=== PATIENT | male | born 1990 | race Caucasian/White ===

== ENCOUNTER 2017-04-09 22:07 | Emergency (ER) | payer OTHER ==
[~2017-04-09] VITALS: Ht 170.2 cm; Wt 68.0 kg
[~2017-04-09 22:07] MED LIST: ATIVAN2 MG PO; CELLCEPT250 MG PO; CETIRIZINE HCL5 MG PO; COZAAR25 MG PO; FLONASE ALLERG9.9 ML NS; FOSAMAX5 MG PO; FOSAMAX70 MG PO; LORAZEPAM1 MG PO; MAGNESIUM CITR296 ML PO; PREDNISONE5 MG PO; PROGRAF1 MG PO; SENNA8.6 MG PO; VITAMIN D350000 UNIT PO; ZANTAC150 MG PO
[2017-04-09] MEDS ORDERED: VITAMIN D50000 UNI1 PO (22:27)
[2017-04-09] MEDS ORDERED: ATIVAN1 MG PO (22:36)
[2017-04-09] MEDS ORDERED: BENADRYL25 MG PO (22:37)
--- NOTE | 2017-04-10 17:24 | EKG ---
[facility] [address] [place] [address] Signed Sinus tachycardia Otherwise normal ECG No previous ECGs available Confirmed by RIGOBERTO REDDY MD ([id number]) on 04/10/2017 5:24:08 PM Electronically Signed By: RIGOBERTO REDDY MD 04/10/17 1724 PATIENT NAME: ZAYHUGO VAUGHAN Electrocardiogram DATE OF : 88 PHYSICIAN: RIGOBERTO REDDY MD REPORT #: [id number] REPORT IS CONFIDENTIAL AND NOT TO BE RELEASED WITHOUT AUTHORIZATION
== END 2017-04-10 01:49 | disposition short-term general hospital (02) ==
LOC: ED 22:07
PROC: 0T9B70Z Drainage of Bladder with Drainage Device, Via Natural or Artificial Opening (ICD-10-PCS; principal; 2017-04-09)
DX: A41.9 Sepsis, unspecified organism (principal); N39.0 Urinary tract infection, site not specified; Z94.0 Kidney transplant status; Z92.25 Personal history of immunosuppression therapy; Z91.013 Allergy to seafood; Z88.8 Allergy status to other drugs, medicaments and biological substances; Z79.899 Other long term (current) drug therapy
CPT/HCPCS: 51702; 71010; 80053; 81001; 83605; 85025; 85610; 85730; 87040; 87077; 87088; 87186; 93005; 93010; 96365; 96368; 99285; J0696; J2704

== ENCOUNTER 2017-05-09 05:53 | Day surgery (SDC) | payer OTHER ==
[~2017-05-09] VITALS: Ht 170.2 cm; Wt 68.0 kg
[~2017-05-09 05:53] MED LIST changes: +ATIVAN1 MG PO; +BENADRYL25 MG PO; +VITAMIN D50000 UNI1 PO
== END 2017-05-09 11:35 | disposition home or self-care (01) ==
LOC: DS 05:53
PROVIDERS: Dentist
PROC: 0CDWXZ1 Extraction of Upper Tooth, Multiple, External Approach (ICD-10-PCS; 2017-05-09)
PROC: 0CDXXZ1 Extraction of Lower Tooth, Multiple, External Approach (ICD-10-PCS; principal; 2017-05-09 06:45)
DX: K08.9 Disorder of teeth and supporting structures, unspecified (principal); G80.9 Cerebral palsy, unspecified; N19 Unspecified kidney failure; K21.9 Gastro-esophageal reflux disease without esophagitis; J30.2 Other seasonal allergic rhinitis; Z94.0 Kidney transplant status; Z91.013 Allergy to seafood; Z88.8 Allergy status to other drugs, medicaments and biological substances
CPT/HCPCS: 00170; J0330; J1100; J2250; J2405; J2704; J3010; J7120

== ENCOUNTER 2018-04-10 06:00 | Day surgery (SDC) | payer OTHER ==
[~2018-04-10] VITALS: Ht 170.2 cm; Wt 69.4 kg
[2018-04-10] MEDS ORDERED: MELATONIN1 MG (06:22)
--- NOTE | 2018-04-10 07:43 | NUR ---
LIPS ANS PALATE VERY RED AND SOMEWHAT EDEMATOS
--- NOTE | 2018-04-10 09:36 | NUR ---
04/10/18 0936 Iesha Keen 0850 PT ARRIVED TO PACU ON 8L VIA MASK, PT REACTIVE. PT IS MRDD AND NONVERBAL. RESP EVEN AND UNLABORED. 0855 PT SLOWLY WAKES AND PULLS OFF MONITORS, PT CONTINUES TO BECOME MORE AWAKE AND MORE EXTREMITIES. PT HAS GOOD MUSCLE TONE AND RESP CONTINUE TO BE EVEN AND UNLABORED. RN TALKING AND REASSURING PT. SKIN IS PINK. 0905 PT RE4ADY FOR TRANSFER TO SEE CAREGIVER AND MOTHER. PT HOLDING ON TO MAGAZINE AND IS STABLE. 0910 REPORT TO JOSTIN ROGEL.
--- NOTE | 2018-04-10 11:19 | NUR ---
1015 DRESSED WANTS TO GO HOME. DC INSTRUCTIONS EXPLAINED AND MOM HASNT ANY QUESTIONS.
== END 2018-04-10 10:05 | disposition home or self-care (01) ==
LOC: DS 06:00
PROVIDERS: Dentist
PROC: 0CRWXJ1 Replacement of Upper Tooth, Multiple, with Synthetic Substitute, External Approach (ICD-10-PCS; 2018-04-10)
PROC: 0CRXXJ0 Replacement of Lower Tooth, Single, with Synthetic Substitute, External Approach (ICD-10-PCS; principal; 2018-04-10 06:45)
DX: K02.9 Dental caries, unspecified (principal); F43.0 Acute stress reaction; F73 Profound intellectual disabilities; I10 Essential (primary) hypertension; N39.0 Urinary tract infection, site not specified; F84.0 Autistic disorder; Z88.8 Allergy status to other drugs, medicaments and biological substances; Z79.899 Other long term (current) drug therapy
CPT/HCPCS: 00170; J0330; J1100; J2405; J2704; J3010

== ENCOUNTER 2019-06-11 06:00 | Day surgery (SDC) | payer OTHER ==
[~2019-06-11] VITALS: Ht 170.2 cm; Wt 69.4 kg
[~2019-06-11 06:00] MED LIST changes: +MELATONIN1 MG
--- NOTE | 2019-06-11 07:59 | NUR ---
PARKING RAMP ATTENDANT GAVE VERSED IN SYRINGE SQUIRTED IN MOUTH HE IMMEDIATELY COUGHED AND SPIT ALL OVER BED AND GOWN. 0650 2ND DOSE MIXED WITH 10MLS 7UP AND HE DRANK MOST OF IT. DANIEL TEZ AWARE.
--- NOTE | 2019-06-11 08:02 | NUR ---
0700 NOT ABLE TO GET VS. PT LYING ON BED BUT STILL NOT RELAXED. MOM AND CAREGIVER AT BEDSIDE ATTENTIVE.
--- NOTE | 2019-06-11 11:01 | NUR ---
06/11/19 1101 Sheets,Iesha 1013 PT ARRIVED TO PACU ON 10L VIA MASK, PT RESP INCREASED RATE AND UPPER WHEEZE NOTED. PT HAS LARGE TONGUE AND GUMS SWOLLEN. RN MONITORING AIRWAY, PT TAKING DEEP BREATHES OFF AND ON. PT STARTING IN MOVE IN BED AND MOVING ARM DURING BP. 1014 CERTIFIED PROFESSIONAL CONTROLLER INCREASED BED TO HGIH FOWLERS AND RN ENCOURAGING PT TO DEEP BREATHE. PT USING ABD MUSCLES TO BREATH DEEP. 1017 O2 REMOVED PT RACHING AND PULLING AT MASK, PT NONVERBAL BUT NO GRMAICNG NOTED AT THIS TIME. PT YAWNING AND DEEP BREAHTING OFF AND ON. RN PLACES FIGUER STICKER O2 DUE TO PT PULLING OF O2 MONITOR. PILLOWING ON EACH SIDE OF PT, PT LEANS TO ONE SIDE AND MOVES ARMS FERQUENTLY. RN PROTECTS PT AMRS AND HEAD WHEN HE IS MOVING AROUND. 1030 RN MOVING IN BED LESS AND BP RUNNING. VSS. PT O2 SAT REMIANS ABOVE 90%. PT RESTING TO ONE SIDE AND BREATHING BECOMES MORE REGULAR. PT YAWNING AND DEEP BREATHING OFF AND ON. 1032 DS RN AT BEDSIDE AND REPORTS BREATHING IS BASELINE FOR PT. PT DROWSY BUT STABLE. PLAN TO RETURN TO DS WITH CAREGIVER AND MOTHER AT BEDSIDE. MINIMAL BLEEDING NOTED IN MOUTH. HOB DECREASED SLIGHTLY AND PILLOWS PLACED ON EACH SIDE OF PT.
--- NOTE | 2019-06-11 11:20 | NUR ---
LE-DC INSTRUCTIONS GIVEN. MOTHER AND CAREGIVER VERBALIZE UNDERSTANDING AND DENY FURTHER QUESTIONS. PT UP IN ROOM AND TRYING TO LEAVE. PT OKAY TO DC AT THIS TIME AND MEETS GENERAL CRITERIA PER DR. NEGRON. JOSTIN ROGEL TAKES PT TO VEHICLE
--- NOTE | 2019-06-11 14:21 | NUR ---
1120 HAS TAKEN WATER AND JELLO. WANTS TO GO HOME.
== END 2019-06-11 11:30 | disposition home or self-care (01) ==
LOC: DS 06:00 → OPS 06:00 → DS 06:45 → OPS 11:30
PROVIDERS: Dentist
PROC: 0WJ3XZZ Inspection of Oral Cavity and Throat, External Approach (ICD-10-PCS; principal; 2019-06-11 06:45)
DX: K03.6 Deposits [accretions] on teeth (principal); K21.9 Gastro-esophageal reflux disease without esophagitis; Z88.8 Allergy status to other drugs, medicaments and biological substances; Z91.013 Allergy to seafood; Z79.899 Other long term (current) drug therapy
CPT/HCPCS: 70320; J0330; J0461; J1100; J1885; J2250; J2405; J2704; J2765; J3010; J7121

== ENCOUNTER 2021-04-27 05:50 | Day surgery (SDC) | payer OTHER ==
[~2021-04-27] VITALS: Ht 160 cm; Wt 72.2 kg
[~2021-04-27 05:50] MED LIST changes: +ACETAMINOPHEN500 M1 PO
[2021-04-27] MEDS ORDERED: DOCUSATE SODIU100 MG PO (06:14)
[2021-04-27] MEDS ORDERED: LORATADINE10 MG PO (06:14)
[2021-04-27] MEDS ORDERED: PROBIOTIC1 EAC1 PO (06:15)
[2021-04-27] MEDS ORDERED: MIRALAX17 GM PO (06:15)
[2021-04-27] MEDS ORDERED: PERIDEX473 M1 MM (06:16)
--- NOTE | 2021-04-27 06:36 | NUR ---
MOM AND RISK CONTROL OFFICER WITH PT WHO IS NONVERBAL ANSWERED QUESTIONS.
--- NOTE | 2021-04-27 06:50 | NUR ---
VERSED IS CALMING PT WILL ATTEMPT COVID TEST. RAILS ARE UP AND FAMILY AT BEDSIDE
--- NOTE | 2021-04-27 07:38 | NUR ---
RESTS QUIETLY ON R SIDE WITH EYES CLOSED AND EVEN RESP AT 16
--- NOTE | 2021-04-27 10:20 | NUR ---
04/27/21 1020 Ely Alston 1011- PT ARRIVES TO PACU NOT FOLLOWING COMMANDS, MOVING EXTREMITIES OFTEN. RESP EVEN AND UNLABORED. OXYGEN SAT HIGH 90'S TO 100% ON 6L VIA MASK. 1015- DIFFICULT TO OBTAIN ACCURATE BP'S THE PT IS MOVING AROUND IN THE BED. OXYGEN TITRATED OFF. 1018- PT MOVED HIMSELF TO HIS RIGHT SIDE. PT DOES NOT FOLLOW COMMANDS. RESP EVEN AND UNLABORED. OXYGEN SAT MID TO HIGH 90'S ON RA.
== END 2021-04-27 11:45 | disposition home or self-care (01) ==
LOC: DS 05:50
PROVIDERS: ATTEND Dentist General Practice
PROC: 0CQWXZ1 Repair of Upper Tooth, Multiple, External Approach (ICD-10-PCS; 2021-04-27)
PROC: 0CQXXZ1 Repair of Lower Tooth, Multiple, External Approach (ICD-10-PCS; principal; 2021-04-27 08:30)
DX: K02.9 Dental caries, unspecified (principal); K06.9 Disorder of gingiva and edentulous alveolar ridge, unspecified; F84.0 Autistic disorder; G80.9 Cerebral palsy, unspecified; F06.4 Anxiety disorder due to known physiological condition; Z94.0 Kidney transplant status; Z91.013 Allergy to seafood; Z88.8 Allergy status to other drugs, medicaments and biological substances
CPT/HCPCS: J0330; J1100; J2001; J2250; J2405; J2704; J7121; U0003

== ENCOUNTER 2022-10-04 05:55 | Day surgery (SDC) | payer OTHER ==
[~2022-10-04] VITALS: Ht 167.6 cm; Wt 69.0 kg
[~2022-10-04 05:55] MED LIST changes: +CEFPODOXIME PR200 MG PO; +CLEOCIN T60 ML TOP; +DOCUSATE SODIU100 MG PO; +FLONASE ALLERG9.9 ML NAS; -FLONASE ALLERG9.9 ML NS; +KETOCONAZOLE120 ML TOP; +LORATADINE10 MG PO; +MAG6464 MG PO; -MAGNESIUM CITR296 ML PO; -MELATONIN1 MG; +MELATONIN1 MG PO; +MIRALAX17 GM PO; +MYCOPHENOLATE250 MG PO; +ONDANSETRON ODT4 MG PO; +PANOXYL156 GM TOP; +PERIDEX473 M1 MISC; +PROBIOTIC1 EAC1 PO; +SENNA-S 8.6-501 EACH PO; -SENNA8.6 MG PO; +TACROLIMUS1 MG PO
--- NOTE | 2022-10-04 08:31 | NUR ---
10/04/22 0831 Ely Alston 0817- PT ARRIVES TO PACU NONAROUSABLE TO STIMULI WITH AN OPA IN PLACE AND PT NEEDING A JAW THRUST. RESP EVEN AND TACHYPNEIC. OXYGEN SAT HIGH 90'S TO 100% ON 10L VIA MASK. RAIL GRINDER AWARE OF PT'S BP. GOING TO GET MEDICATION FOR IT. SEE ANESTHESIA BLUE SHEET. 0821- PT APNEIC. PREPARING TO BAG PT. JAW THRUST BEING PERFORMED. PT STARTS BREATHING AGAIN ON HIS OWN. PT NOT BAGGED AT THIS TIME. 0823- PT DRAWING UP HIS LEGS. PT IS NOT OPENING HIS EYES. OPA LEFT IN PLACE. PT REMAINS NEEDING A JAW THRUST INTERMITTENTLY. 0829- RAIL GRINDER REMAINS AT THE BEDSIDE TO TREAT PT'S HYPERTENSION. SEE ANESTHESIA BLUE SHEET.
--- NOTE | 2022-10-04 09:09 | NUR ---
0855-PATIENT BACK TO ROOM FROM PACU ON RA. RECEIVED REPORT FROM RAZA ROGEL. PATIENT IS DROWSY LAYING ON HIS RIGHT SIDE. NO DRAINAGE NOTED IN MOUTH. SOME BLOOD NOTED ON PATIENTS PILLOW. PATIENT MOM AND CAREGIVER ARE IN THE ROOM. RED JELLO AND SODA PROVIDED TO PATIENT PER MOMS REQUEST. CALL LIGHT WITHIN REACH.
--- NOTE | 2022-10-04 10:35 | NUR ---
0948-PATIENT SITTING UP IN BED. CAREGIVER AND MOM WOULD LIKE TO TAKE PATIENT HOME. VSS. PATIENT DOESN'T APPEAR TO BE IN PAIN. DRIED BLOOD NOTED AROUND MOUTH AND NOSE. PATIENT IS ALREADY DRESSED.
--- NOTE | 2022-10-04 10:42 | NUR ---
0955-PROVIDED DISCHARGE INSTRCTIONS TO CAREGIVER AND PATIENT. ALL QUESTIONS ANSWERED. PATIENT AMBULATES TO WHEELCHAIR. RIDE PROVIDED TO FRONT OF HOSPITAL. THEN MITZI ROGEL WALKED PATIENT TO [place].
== END 2022-10-04 09:55 | disposition home or self-care (01) ==
LOC: OPS 05:55 → DS 05:55 → OPS 07:00
PROVIDERS: ATTEND Dentist General Practice
DX: K02.9 Dental caries, unspecified (principal); K05.6 Periodontal disease, unspecified; K59.09 Other constipation; F84.0 Autistic disorder; F41.1 Generalized anxiety disorder
CPT/HCPCS: 70320; J0330; J1100; J1885; J2250; J2405; J2704; J2765; J3010; J7121

== ENCOUNTER 2023-11-21 05:49 | Day surgery (SDC) | payer OTHER ==
[~2023-11-21] VITALS: Ht 167.6 cm; Wt 72.7 kg
[~2023-11-21 05:49] MED LIST changes: +DEBROX SWIMMER'30 ML; +LACTATED RINGER'S 1,000 ML IV SCH
[2023-11-21] MEDS ORDERED: MIDAZOLAM HCL 10 MG/5 ML SYR PO ONE (06:00)
[2023-11-21] MEDS ORDERED: METOCLOPRAMIDE HCL 10 MG/2 ML SDV ONE (06:03)
[2023-11-21] MEDS ORDERED: fentaNYL citrate 100 MCG/2 ML VIAL ONE (06:03)
[2023-11-21] MEDS ORDERED: SUCCINYLCHOLINE IN 0.9% NACL 200 MG/10 ML SYRINGE ONE (06:03)
[2023-11-21] MEDS ORDERED: MIDAZOLAM HCL 2 MG/2 ML VIAL ONE (06:03)
[2023-11-21] MEDS ORDERED: propofoL 200 MG/20 ML VIAL ONE (06:03)
[2023-11-21] MEDS ORDERED: FAMOTIDINE 20 MG/ 2 ML VIAL ONE (06:03)
[2023-11-21] MEDS ORDERED: LACTATED RINGER'S 1,000 ML IV ONE (06:03)
[2023-11-21] MEDS ORDERED: DEXAMETHASONE SOD PHOS 4 MG/ML VIAL ONE (06:03)
[2023-11-21] MEDS ORDERED: ROCURONIUM BROMIDE 50 MG/5 ML SYR ONE (06:03)
[2023-11-21] MEDS ORDERED: KETOROLAC TROMETHAMINE 30 MG/ML VIAL ONE (06:03)
[2023-11-21] MEDS ORDERED: ondansetron HCL 4 MG/2 ML VIAL ONE (06:03)
[2023-11-21] MEDS ORDERED: SUGAMMADEX SODIUM 200 MG/2 ML ML ONE (06:03)
[2023-11-21] MEDS ORDERED: LIDOCAINE HCL 4% 5 ML AMP ONE (06:03)
[2023-11-21] MEDS ORDERED: OXYMETAZOLINE HCL 30 ML BTL ONE (06:10)
[2023-11-21 06:24] VITALS: BP 146/101
--- NOTE | 2023-11-21 06:37 | NUR ---
PT MOTHER DEL (LEGAL GUARDIAN) AND FOSTER MOTHER (OCTOBER) IN ROOM. ORAL VERSED GIVEN, TOLERATED WELL. PT REQUIRES 2PA FOR HOLDING/CALMING.
[2023-11-21] MEDS ORDERED: IBLOOD GLUCOSE TEST STRIP 1 EA TEST VI PRN (07:00)
[2023-11-21] MEDS ORDERED: LIDOCAINE HCL 1% 5 ML SDV INJ ONE (07:00)
[2023-11-21] MEDS ORDERED: METOPROLOL TARTRATE 5 MG/5 ML VIAL ONE (07:09)
[2023-11-21] MEDS ORDERED: LABETALOL HCL 100 MG/20 ML MDV ONE (07:18)
[2023-11-21] MEDS ORDERED: dexmedeTOMIDine HCl 200 MCG/2 ML VIAL ONE (07:21)
[2023-11-21] MEDS ORDERED: hydrALAZINE HCL 20 MG/ML VIAL ONE (07:48)
--- NOTE | 2023-11-21 08:12 | NUR ---
11/21/23 0812 Diana Macias LE 0807: PT ARRIVES TO PACU WITH ORAL AIRWAY IN PLACE AND A JAW THRUST BEING PERFORMED BY APPLICATIONS SYSTEMS ANALYST. LE 0810: ORAL AIRWAY IS REMOVED. LE 0811: PT TAKES O2 MASK OFF.
[2023-11-21 08:28] VITALS: BP 134/80
--- NOTE | 2023-11-21 08:30 | NUR ---
DIXON 0830: PT IS BACK TO DS FROM PACU. HE IS BACK TO HIS BASELINE.
--- NOTE | 2023-11-21 09:00 | NUR ---
IN PT ROOM FOR ROUNDING. PT IS ON LFT SIDE AND RELAXED AT THIS TIME. PT FAMILY STATES OCCASIONAL DISCOMFORT AND REACHING FOR THE MOUTH BUT APPEARS BACK TO BASELINE. LIGHTS DIMMED FOR THERAPEUTIC MILIEU. CALL LIGHT WITHIN REACH, NO FURTHER NEEDS AT THIS TIME.
--- NOTE | 2023-11-21 09:30 | NUR ---
IN PT ROOM FOR VS AND ASSESSMENT. NO ACUTE CHANGES FROM PREVIOUS ASSESSMENT. PT BECOMING RESTLESS AND WANTING TO GET OUT OF BED. BRACELETS REMOVED D/T IRRITATING PT. IV DC'ED D/T IRRITATING PT. VS TAKEN. PT FAMILY REQUESTS TO SPEAK TO DR. WATSON. LET THEM KNOW SMALL WAIT OF ~30 MINUTES, THEY STATE THEY ARE COMFORTABLE WITH WAITING AT THIS TIME. CALL LIGHT WITHIN REACH, NO FURTHER NEEDS AT THIS TIME.
--- NOTE | 2023-11-21 09:42 | NUR ---
WALKER DMD IN ROOM AT THIS TIME DISCUSSING PROCEDURE AND ANSWERING QUESTIONS BY FAMILY AT THIS TIME. FAMILY STATES NO FURTHER QUESTIONS OR NEEDS. PT BECOMING MORE RESTLESS. PT GETTING DRESSED AT THIS TIME W/FAMILY ASSISTANCE. CALL LIGHT WITHIN REACH, NO FURTHER NEEDS AT THIS TIME.
[2023-11-21 09:45] VITALS: BP 108/62
--- NOTE | 2023-11-21 09:50 | NUR ---
IN PT ROOM FOR DISCHARGE EDUCATION AT THIS TIME. FAMILY STATES VERBAL UNDERSTANDING AND NO FURTHER QUESTIONS AT THIS TIME. PT OFF OF UNIT VIA WC TO VEHICLE. PT FAMILY STATES NO FURTHER QUESTIONS OR NEEDS AT THIS TIME. ALL BELONGINGS IN PT POSSESSION.
== END 2023-11-21 09:55 | disposition home or self-care (01) ==
LOC: DS 05:49 → OPS 05:49 → DS 07:00 → OPS 07:00
PROVIDERS: ATTEND Dentist General Practice
PROC: 0CDWXZ2 Extraction of Upper Tooth, All, External Approach (ICD-10-PCS; 2023-11-21)
PROC: 0CDXXZ2 Extraction of Lower Tooth, All, External Approach (ICD-10-PCS; principal; 2023-11-21 07:00)
DX: K02.9 Dental caries, unspecified (principal); F84.0 Autistic disorder; G80.9 Cerebral palsy, unspecified; Z94.0 Kidney transplant status; K21.9 Gastro-esophageal reflux disease without esophagitis; Z88.8 Allergy status to other drugs, medicaments and biological substances
CPT/HCPCS: 00170; J0330; J0360; J1100; J1885; J2250; J2405; J2704; J2765; J3010; J3490; J7121

== ENCOUNTER 2025-01-07 06:53 | Day surgery (SDC) | payer MEDICARE, OTHER ==
[~2025-01-07] VITALS: Ht 167.6 cm; Wt 71.0 kg
[~2025-01-07 06:53] MED LIST changes: +ALLEGRA ALLERG180 MG PO; +ALPRAZOLAM2 MG PO; +BISACODYL10 MG PR; +CLARITIN10 MG PO; +DIPHENHYDRAMINE25 M1 PO
[2025-01-07] MEDS ORDERED: IBLOOD GLUCOSE TEST STRIP 1 EA TEST VI PRN (07:00)
[2025-01-07] MEDS ORDERED: LIDOCAINE HCL 1% 5 ML SDV INJ ONE (07:00)
[2025-01-07 07:11] VITALS: BP 158/125
[2025-01-07 07:43] VITALS: BP 149/105
[2025-01-07] MEDS ORDERED: DEXAMETHASONE SOD PHOS 4 MG/ML VIAL ONE (08:01)
[2025-01-07] MEDS ORDERED: MIDAZOLAM HCL 2 MG/2 ML VIAL ONE (08:01)
[2025-01-07] MEDS ORDERED: LIDOCAINE HCL 2% 5 ML SDV ONE (08:01)
[2025-01-07] MEDS ORDERED: propofoL 200 MG/20 ML VIAL ONE (08:01)
[2025-01-07] MEDS ORDERED: ondansetron HCL 4 MG/2 ML VIAL ONE (08:01)
[2025-01-07] MEDS ORDERED: fentaNYL citrate 100 MCG/2 ML VIAL ONE (08:01)
[2025-01-07] MEDS ORDERED: ROCURONIUM BROMIDE 50 MG/5 ML SYR ONE (08:01)
[2025-01-07] MEDS ORDERED: SUGAMMADEX SODIUM 200 MG/2 ML ML ONE (08:02)
--- NOTE | 2025-01-07 09:19 | NUR ---
PT'S FAMILY IS GIVEN AN UPDATE. HE IS DOING WELL RIGHT NOW. FAMILY IS EDUCATED TO LET RN KNOW IF THAT CHANGES.
[2025-01-07] MEDS ORDERED: ePHEDrine sulfate 50 MG/ML AMP ONE (11:00)
--- NOTE | 2025-01-07 11:23 | NUR ---
01/07/25 1123 Nirmala Brandon 1112-PT ARRIVES TO PACU VIA STRETCHER, PT RESPONSIVE TO STIMULI, OPA IN PLACE, VSS ON 6L VIA MASK, RR EVEN AND UNLABORED. 1113-PT FULLY AWAKE NOW, OPA REMOVED AND TITRATED TO RA, VS REMAIN STABLE, PT SLIGHTLY AGGITATED, BUT REASSURED WITH TALK AND TOUCH.
[2025-01-07] MEDS ORDERED: MIDAZOLAM HCL 2 MG/2 ML VIAL IV PRN (11:30)
[2025-01-07] MEDS ORDERED: fentaNYL citrate 50 MCG/ML SDV IV PRN (11:30)
[2025-01-07] MEDS ORDERED: NALOXONE HCL 0.4 MG SYR IV PRN (11:30)
[2025-01-07] MEDS ORDERED: MEPERIDINE HCL 25 MG/1 ML VIAL IV PRN (11:30)
[2025-01-07] MEDS ORDERED: ondansetron HCL 4 MG/2 ML VIAL IV PRN (11:30)
[2025-01-07 11:35] VITALS: BP 160/108
--- NOTE | 2025-01-07 11:38 | NUR ---
LE 1135: PT IS BACK TO DS FROM PACU. HE HAS RETURNED TO HIS BASELINE. MOM AND FOSTER MOM ARE ON THEIR WAY BACK TO ROOM. LE 1139: MOM AND FOSTER BACK IN ROOM. PT IS GIVEN A SPRITE AND JELLO. DC CRITERIA IS REVIEWED.
[2025-01-07] MEDS ORDERED: SEVOFLURANE 250 ML BTL INH ONE (11:59)
[2025-01-07 12:23] VITALS: BP 152/109
--- NOTE | 2025-01-07 12:24 | NUR ---
PT IS TOLERATING JELLO AND SPRITE. HE IS ABLE TO TAKE HIS MORNING MEDS WITHOUT ISSUES. HE HAS MET ALL DC CRITERIA. WILL WORK ON GETTING PT DRESSED AND READY TO GO HOME.
--- NOTE | 2025-01-07 12:49 | NUR ---
LE 1230: MOM AND FOSTER MOM ARE GIVEN VERBAL AND WRITTEN DC INSTRUCTIONS. THEY BOTH VERBALIZE UNDERSTANDING. QUESTIONS ARE ASKED AND ANSWERED. LE 1235: PT IS OFFICIALLY DC'D. LE 1240: PT IS TAKEN TO PERSONAL VEHICLE VIA , HE TRANSFER TO PERSONAL VEHICLE WITH ASSISTANCE.
== END 2025-01-07 12:35 | disposition home or self-care (01) ==
LOC: DS 06:53 → OPS 06:53 → DS 09:00 → OPS 09:00
PROVIDERS: ATTEND Dentist General Practice
PROC: 0CQWXZ1 Repair of Upper Tooth, Multiple, External Approach (ICD-10-PCS; 2025-01-07)
PROC: 0CQXXZ1 Repair of Lower Tooth, Multiple, External Approach (ICD-10-PCS; principal; 2025-01-07 09:00)
DX: K02.9 Dental caries, unspecified (principal); G80.9 Cerebral palsy, unspecified; K21.9 Gastro-esophageal reflux disease without esophagitis; Z79.899 Other long term (current) drug therapy; Z88.8 Allergy status to other drugs, medicaments and biological substances; Z91.013 Allergy to seafood
CPT/HCPCS: 00170; J1100; J2003; J2250; J2405; J2704; J3010; J3490; J7121